=== PATIENT | male | born 1995 | race Two or more races ===

== ENCOUNTER 2016-06-17 19:44 | Emergency (ER) | payer MEDICAID ==
[~2016-06-17] VITALS: Ht 172.7 cm; Wt 86.2 kg
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
== END 2016-06-17 21:25 | disposition left against medical advice (07) ==
LOC: ER 19:44
DX: Z53.21 Procedure and treatment not carried out due to patient leaving prior to being seen by health care provider (principal)
CPT/HCPCS: A4663

== ENCOUNTER 2016-10-25 03:02 | Emergency (ER) | payer MEDICAID, OTHER ==
[~2016-10-25] VITALS: Ht 172.7 cm; Wt 86.2 kg
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
--- NOTE | 2016-10-25 03:42 | NUR ---
Laceration repair completed by Dr. Varghese using sutures. Pt medicated for pain, will monitor for effects of medication. Pt to CT via w/c
[2016-10-25] MEDS ORDERED: ACETAMINOPHEN 325 MG TABLET PO ONE (03:45)
[2016-10-25] MEDS ORDERED: LIDOCAINE HCL 2% 20 ML VIAL TP ONE (03:45)
[2016-10-25] MEDS ORDERED: ACETAMINOPHEN ES 500 MG TABLET ONE (03:49)
--- NOTE | 2016-10-25 04:15 | NUR ---
Pt stable for discharge per MD. Pt given [facility]CI. Pt and mother both verbalized understanding of dc instructions. Call [employer] dispatch confirmed they are en route to ER for report.
--- NOTE | 2016-10-25 04:20 | NUR ---
[employer] at bedside.
[2016-10-25 04:30] VITALS: BP 137/78
== END 2016-10-25 04:31 | disposition home or self-care (01) ==
LOC: ER 03:02
DX: S02.2XXA Fracture of nasal bones, initial encounter for closed fracture (principal); S01.111A Laceration without foreign body of right eyelid and periocular area, initial encounter; S06.0X9A Concussion with loss of consciousness of unspecified duration, initial encounter; F10.20 Alcohol dependence, uncomplicated; F17.200 Nicotine dependence, unspecified, uncomplicated; R55 Syncope and collapse; Y09 Assault by unspecified means; Y92.89 Other specified places as the place of occurrence of the external cause; Y99.8 Other external cause status
CPT/HCPCS: 70450; 70486; A4663

== ENCOUNTER 2016-10-30 10:36 | Emergency (ER) | payer OTHER ==
[~2016-10-30] VITALS: Ht 172.7 cm; Wt 86.2 kg
--- NOTE | 2016-10-30 10:49 | NUR ---
Sutures removed by .
--- NOTE | 2016-10-30 10:51 | NUR ---
Patient discharged to home in stable conditon. Written and verbal after care instructions given. Patient verbalizes understanding of instructions.
== END 2016-10-30 10:52 | disposition home or self-care (01) ==
LOC: ER 10:36
DX: S01.81XD Laceration without foreign body of other part of head, subsequent encounter (principal); Z48.02 Encounter for removal of sutures; X58.XXXD Exposure to other specified factors, subsequent encounter; F17.200 Nicotine dependence, unspecified, uncomplicated
CPT/HCPCS: 99281; 99406; A4663